=== PATIENT | female | born 1955 | race Caucasian/White ===

== ENCOUNTER 2021-11-30 12:41 | Outpatient (CLI) | payer MEDICARE, SELFPAY ==
--- NOTE | ~2021-11-30 | MR_ITS ---
EXAMINATION: MR lumbar spine wo con DATE: 11/30/2021 13:14 INDICATION: Back pain. TECHNIQUE: Magnetic resonance imaging (MRI) of the lumbar spine was performed without intravenous con trast. Sequences included sagittal T2-weighted FSE, sagittal T2-weighted FS FSE, sagittal T1-weighted FSE, and axial T2-weighted FSE. COMPARISON: Lumbar spine MRI 08/04/2020 FINDINGS: There is 6 degrees levocurvature of lumbar spine. There is 3 mm anterolisthesis of L2 on L3 . Vertebral body heights are normal. There is severely decreased disc height at L1-L2, moderately dec reased disc height at L2-L3, and severely decreased disc height from L3-L4 through L5-S1 with endplat e remodeling. The distal spinal cord signal intensity is normal. The conus medullaris is at L1. There are cysts in the kidneys measuring up to 14 mm on the right. The following disc levels are specifica lly discussed: L1-L2: The disc is bulging and has an annular fissure. There is mild bilateral facet joint osteoarthr itis. There is mild left neural foraminal stenosis. There is mild central canal stenosis. L2-L3: The disc is bulging. There is severe bilateral facet joint osteoarthritis. There is mild left neural foraminal stenosis. There is mild central canal stenosis. L3-L4: The disc is bulging and has an annular fissure. There is mild bilateral facet joint osteoarthr itis. There is mild bilateral neural foraminal stenosis. There is mild central canal stenosis. L4-L5: The disc is bulging and has an annular fissure. There is severe bilateral facet joint osteoart hritis. There is mild right and moderate left neural foraminal stenosis. There is mild central canal stenosis. L5-S1: The disc is bulging and has an annular fissure. There is severe bilateral facet joint osteoart hritis. There is mild bilateral neural foraminal stenosis. There is mild central canal stenosis. IMPRESSION: 1. Severe lumbar spondylosis with mild interval worsening at L1-L2. Reviewed, dictated and finalized at location A.
== END 2021-11-30 12:42 | disposition home or self-care (01) ==
PROVIDERS: PCP Family Medicine; Visit Provider Neurological Surgery
DX: M47.817 Spondylosis without myelopathy or radiculopathy, lumbosacral region (principal); M48.07 Spinal stenosis, lumbosacral region; M54.9 Dorsalgia, unspecified
CPT/HCPCS: 72148

== ENCOUNTER 2022-01-02 12:42 | Outpatient (CLI) | payer MEDICARE, SELFPAY ==
--- NOTE | 2022-01-02 12:57 | ECG_ITS ---
Measurements Intervals [place] Rate: 60 P: 18 [place]: 112 QRS: -22 QRSD: 98 T: 64 QT: 416 QTc: 417 Interpretive Statements SINUS RHYTHM WITH SHORT [place] INTERVAL BORDERLINE LEFT AXIS DEVIATION [QRS AXIS < -20] LOW QRS VOLTAGE IN PRECORDIAL LEADS [QRS DEFLECTION < 1.0 mV IN CHEST LEADS] PATTERN CONSISTENT WITH PULMONARY DISEASE INCOMPLETE RIGHT BUNDLE BRANCH BLOCK [90+ ms QRS DURATION, TERMINAL R IN V1/V2, 40+ ms S IN I/aVL/V4/V5/V6] ABNORMAL ECG NO PREVIOUS ECG AVAILABLE FOR COMPARISON Electronically Signed On 01-02-2022 14:13:47 CDT by Yrn Crews M.D.
== END 2022-01-02 12:43 | disposition home or self-care (01) ==
PROVIDERS: PCP Family Medicine; Visit Provider Neurological Surgery
DX: Z01.818 Encounter for other preprocedural examination (principal); R94.31 Abnormal electrocardiogram [ECG] [EKG]
CPT/HCPCS: 93005

== ENCOUNTER 2022-01-29 10:23 | Outpatient (CLI) | payer MEDICARE, SELFPAY ==
[2022-01-29 11:00] LABS: Anion Gap 12 mmol/L (8-16); Blood Urea Nitrogen 31 mg/dL (7-17); Calcium 9.5 mg/dL (8.4-10.2); Carbon Dioxide 29 mmol/L (22-30); Chloride 95 mmol/L (98-107); Estimated Glomerular Filt Rate > 60; Glucose 102 mg/dL (65-110); Potassium 3.9 mmol/L (3.4-5.0); Sodium 136 mmol/L (137-145)
== END 2022-01-29 10:24 | disposition home or self-care (01) ==
LOC: ANHSURGERY 10:28
PROVIDERS: Anesthesiology; PCP Family Medicine; Visit Provider Neurological Surgery
DX: M48.061 Spinal stenosis, lumbar region without neurogenic claudication (principal); Z79.899 Other long term (current) drug therapy; Z01.818 Encounter for other preprocedural examination
CPT/HCPCS: 36415; 80048; 86850; 86900; 86901

== ENCOUNTER 2022-02-01 00:34 | Day surgery (SDC) | payer MEDICARE, SELFPAY ==
[2022-01-19 08:19] VITALS: BMI 23.4
--- NOTE | 2022-01-19 08:29 | PC.NURSE ---
PRE-OP INSTRUCTIONS, PLEASE READ CAREFULLY Report to the Outpatient Waiting Room, entrance under the green pavilion located off [facility], at time _0900_ on date _02/01/22_. Planned Procedure Time: _1100_. PACK A SMALL OVERNIGHT BAG AND LEAVE IN THE CAR Time changes happen often and if your time is changed the preop area will call you the afternoon before. - You and your visitor will be asked to self-screen and do not enter if you have any COVID symptoms. - We encourage only one visitor and NO visitors under age 16 are allowed at this time. Your visitor will receive communication by the phone number that is given day of service. - The patient visitor is requested to social distance or may leave the building when not with patient due to restrictions. - A mask is required within the hospital. -VISITING HOURS 8AM-8PM Patients may have clear liquids (water, carbonated beverages, clear teas, apple juice) until 3 hours prior to surgery (0800 AM) with a maximum of 20 ounces. - No food from midnight until time of surgery Take the following medications with a SIP of water the morning of surgery: _PAIN MED IF NEEDED_ Medications to discontinue per ANESTHESIA - _VITAMINS/SUPPLEMENTS 3 DAYS PRIOR TO SURGERY, Date to take last dose 01/28/22_ (PT STATES ALREADY STOPPING IBUPROFEN, ANACIN END OF DEC FOR UPCOMING SURGERY) Please no make-up, nail urdu, hairspray, perfume, deodorant, or body powder the day of surgery. No jewelry (including any body piercings) or valuables the day of surgery, leave them at home. Please take a shower or bath the night before, or the morning of, surgery with an antibacterial soap. Wear comfortable, loose fitting clothing. - Jewelry must be removed prior to entering the operating room. Rings and piercings that are not removed may be cut off. - The hospital will not accept responsibility for valuables. - Please leave all valuables, including medications, at home the day of surgery. If you are going home after surgery, a licensed school boat driver must drive you home. - NO public transportation without another adult. - We recommend that an adult stay with you for 24 hours following discharge. - We also recommend that you do not drive, make important decision, drink alcoholic beverages, or take any drugs that were not prescribed by your health care provider for at least 24 hours after your discharge time. Follow any additional instructions given to you from your surgeon. If you or anyone in your household have experienced Covid symptoms in the past week, please notify your surgeon or the nurse liaison at the phone number below for possible testing. Telephone instructions given to PT and asked if any additional questions and then verbalized understanding. Patient advised to call surgeon office or pre surgery nurse liaison [phone] if any additional questions.
--- NOTE | 2022-01-31 13:32 | WPDANESEPPF ---
Anes - Initial Pre Proc Eval Procedure: Operation Date: 02/01/22 09:30 Proposed Procedures p Right L4-5 Far Lateral Foraminotomy - Abhijeet Cole MD Date/Time: 01/31/22 13:32 Surgeon: Abhijeet Cole MD Pre Op Diagnosis: right L4-5 foraminal stenosis Patient Data Age: 66 Gender: F Height: 1.57 m Weight: 57.72 kg Allergies Allergy/AdvReac Type Severity Reaction Status Date / Time naproxen [From Naprosyn] AdvReac Nausea and Verified 01/19/22 08:08 Vomiting Home Medications Medication Instructions Recorded Confirmed Type aspirin-caffeine 400 mg-32 mg 1 tablet PO ONCE 11/03/21 01/19/22 History tablet (Anacin) hydrocodone 5 mg-acetaminophen 325 1 tablet PO DAILY PRN Pain 11/03/21 01/19/22 History mg tablet ibuprofen 200 mg tablet (Advil) 200 mg PO .COMPLEX PRN Pain 11/03/21 01/19/22 History lisinopril 20 1 tablet PO DAILY 11/03/21 01/19/22 History mg-hydrochlorothiazide 25 mg tablet acetaminophen 500 mg tablet 1,000 mg PO QID PRN Pain 01/19/22 01/19/22 History ascorbic acid 125 mg-collagen, 1 cap PO BID 01/19/22 01/19/22 History hydrolyzed 740 mg capsule (Collagen Plus Vitamin C) diphenhydramine 25 1 tablet PO HS PRN PAIN/SLEEP 01/19/22 01/19/22 History mg-acetaminophen 500 mg tablet (Tylenol PM Extra Strength) melatonin 5 mg tablet 5 mg PO HS PRN Sleep 01/19/22 01/19/22 History vit C 250 mg-vit E 90 mg-zinc 40 1 tablet PO BID 01/19/22 01/19/22 History mg-copper 1 [id number] capsule (PreserVision AREDS-2) Patient hx anesthesia problems: post op nausea/vomiting Family hx anesthesia problems: none Results Review: All pre-operative results and documents have been reviewed as part of the pre-operative evaluation. [facility] Past Medical History Medical History (Updated 01/31/22 @ 13:35 by Waqas Sapp DO) Arthritis Hypercholesteremia Hypertension PONV (postoperative nausea and vomiting) Surgical History Surgical History H/O: hysterectomy History of delivery Family History Family History Other Cancer Heart disease Social History Social History Smoking status: Never smoker Second hand tobacco smoke exposure: No Alcohol intake: current Alcohol use details: STATES VERY RARE MAYBE 1 DRINK EVERY 6 MONTHS Substance use: current Substance use type: does not use Other substance usage details: CBD WITH CHT / 5MG GUMMIE @ NOT Last use: END OF DEC 2021 Living arrangements: with friend(s) Additional living arrangements comments: LIVES WITH SIGNIFICANT OTHER [facility] [phone] Spiritual care concerns: No Anes - Eval Final PreProcedure Day of Procedure 01/31/22 13:32 Patient weight: obese Heart: regular rate and rhythm Lungs: clear to auscultation Airway: Mallampati scale class II Neurological: alert and oriented Last oral intake: >/= 8 hours ASA classification: II Emergent: no Anesthetic plan: proceed Anesthesia type and monitoring: general ETT and standard monitoring Results Review: All pre-operative results and documents have been reviewed as part of the pre-operative evaluation. Informed Consent: The patient's anesthetic plan and its attendant risks and benefits were discussed with the patient/family/POA. Questions were solicited and answers provided to the satisfaction of the patient/family/POA.
[2022-02-01] VITALS (8 sets, daily range): BP systolic 105–147; BP diastolic 49–70; PULSE 55–81; RESP 10–16; TEMP 36.1–36.7; O2SAT 93–100
--- NOTE | ~2022-02-01 | XR_ITS ---
EXAMINATION: XR fluoroscopy no charge INDICATION: Foraminotomy TECHNIQUE: A single intraoperative fluoroscopic image is submitted for review. Total fluoroscopic gale e was 1.2 seconds. COMPARISON: None available FINDINGS: Fluoroscopic image demonstrates a surgical intervention at the level of the L4 vertebral aayush dy. Please refer to procedure note for full details. IMPRESSION: 1. Please refer to procedure note for full details. Reviewed, dictated and finalized at location F. [facility]
[2022-02-01] MEDS: LACTATED RINGERS 1,000 ML 30 ML IV CONT ×2 (08:22→11:13)
[2022-02-01] MEDS: SCOPOLAMINE 1.5 MG PATCH TRANSDERM (08:39)
--- NOTE | 2022-02-01 09:38 | PM.IMHP ---
H&P: HPI History of Present Illness Date/Time: 02/01/22 09:38 Chief Complaint: Back and leg pain Narrative: Faby is a 66-year-old female with a right L4 radiculopathy related to compression in the foramen by a herniated disc and spondylosis who presents for a right L4-5 far lateral foraminotomy and microdiskectomy. She has not changed appreciably since we saw her last. She has occasional dermatomal numbness. She has no specific muscle group weakness. She is not having bowel or bladder difficulty. Review of Systems Review of Systems: Patient denies shortness of breath, cough, fever, chills, nausea, vomiting, weight loss, weight gain, chest pain, dysuria. She has back and leg pain as above. The review of systems is otherwise negative on 12 systems except as noted elsewhere. [facility] Past Medical History Medical History Arthritis Hypercholesteremia Hypertension PONV (postoperative nausea and vomiting) Surgical History Surgical History H/O: hysterectomy History of delivery Family History Family History Other Cancer Heart disease Social History Social History Smoking status: Never smoker Second hand tobacco smoke exposure: No Alcohol intake: current Alcohol use details: STATES VERY RARE MAYBE 1 DRINK EVERY 6 MONTHS Substance use: current Substance use type: does not use Other substance usage details: CBD WITH CHT 1/2 5MG GUMMIE @ NOT Last use: END OF DEC 2021 Living arrangements: with friend(s) Additional living arrangements comments: LIVES WITH SIGNIFICANT OTHER [facility] [phone] Spiritual care concerns: No Meds Home Medications and Allergies Home Medications Medication Instructions Recorded Confirmed Type aspirin-caffeine 400 mg-32 mg 1 tablet PO ONCE 11/03/21 01/19/22 History tablet (Anacin) hydrocodone 5 mg-acetaminophen 325 1 tablet PO DAILY PRN Pain 11/03/21 01/19/22 History mg tablet ibuprofen 200 mg tablet (Advil) 200 mg PO .COMPLEX PRN Pain 11/03/21 01/19/22 History lisinopril 20 1 tablet PO DAILY 11/03/21 01/19/22 History mg-hydrochlorothiazide 25 mg tablet acetaminophen 500 mg tablet 1,000 mg PO QID PRN Pain 01/19/22 01/19/22 History ascorbic acid 125 mg-collagen, 1 cap PO BID 01/19/22 01/19/22 History hydrolyzed 740 mg capsule (Collagen Plus Vitamin C) diphenhydramine 25 1 tablet PO HS PRN PAIN/SLEEP 01/19/22 01/19/22 History mg-acetaminophen 500 mg tablet (Tylenol PM Extra Strength) melatonin 5 mg tablet 5 mg PO HS PRN Sleep 01/19/22 01/19/22 History vit C 250 mg-vit E 90 mg-zinc 40 1 tablet PO BID 01/19/22 01/19/22 History mg-copper 1 [id number] capsule (PreserVision AREDS-2) Allergies Allergy/AdvReac Type Severity Reaction Status Date / Time naproxen [From Naprosyn] AdvReac Nausea and Verified 01/19/22 08:08 Vomiting Exam Narrative: Strength is normal in bilateral lower extremities to direct confrontation. Sensation is intact to light touch throughout the lower extremities. Clear to auscultation Regular rate and rhythm Assessment and Plan Assessment and plan (1) Foraminal stenosis of lumbar region: Code(s): M48.061 - Spinal stenosis, lumbar region without neurogenic claudication Status: Acute Plan Faby is a 66-year-old female with back and leg pain related to stenosis in the foramen on the right at L4-5 presents for far lateral foraminotomy. I described to her again that operation, its risks, potential benefits, the alternatives, the operative and postoperative course in detail and answered all her questions personally. She indicates understanding and elects to proceed with that operation
--- NOTE | 2022-02-01 09:40 | WPDHPUPDATE1 ---
History and Physical Update Update Date/Time: 02/01/22 09:40 History and Physical has been reviewed, including an updated exam of the patient. There are NO changes in the patient's condition. Risks, benefits, and alternatives have been discussed and questions answered. Patient agrees to proceed with procedure.
[2022-02-01] MEDS: ceFAZolin 2 GM/D5W 50 ML 2 GM/50 ML BAG IVPB (09:58)
[2022-02-01] MEDS: LIDO 2%/EPINEPHRINE 1:100,000 50 ML VIAL 30 ML INFILTRATE (11:00)
--- NOTE | 2022-02-01 11:08 | P.OP_ITS ---
Procedure Note - Detailed Date of Procedure 02/01/22 Pre-op Diagnosis right L4-5 foraminal stenosis Post-op Diagnosis Same Procedure Performed Right L4-5 far lateral foraminotomy Surgeon Abhijeet Cole MD [employer] Demond Perez General Indications Faby is a 66-year-old female with back and right lower extremity pain related to foraminal stenosis at L4-5 presents for decompression. Description of Procedure The patient was brought to the operating room in the supine position, was sedated, intubated and placed under general anesthesia in routine fashion. She was then turned into the prone position on a Artis frame. The of operation her back was examined, marked for incision, prepped and draped in routine sterile fashion. Incision was marked over the L4-L5 spinous processes in the midline. This area was injected with 0.5% lidocaine with [id number] epinephrine. Intravenous antibiotics given prior to incision. Incision was made with a 10 blade scalpel down to the lumbodorsal fascia. A subperiosteal dissection of the muscle soft tissue away from spinous process and lamina on the right at L4-5 was performed with a subperiosteal elevator and Bovie cautery. A verifying x-rays obtained to verify the level of operation. At the L4-5 level Midas-Christos drill was used to resect the lateral pars and facet to the soft contents of the foramen were encountered. Under microscopy the yellow ligament was lifted and removed piecemeal using Kerrison punches. This exposed the disc and nerve below. The nerve was reflected superiorly. The ligament was entered using 11 blade scalpel. An Jessica curette, curved curette and Keene and pituitary rongeur were used to push free and removed fragments of hard and soft disc herniation from beneath the nerve. This was done until a nerve hook could be placed proximally and distally to confirm microdecompression. The wound was then copiously irrigated with bacitracin irrigation all bleeding was stopped with bipolar and Bovie cautery and Gelfoam thrombin powder. The wound was then closed in layered fashion with 2-0 Vicryl interrupted sutures in the lumbodorsal fascia and Dewey's layer. 3-0 Vicryl buried interrupted sutures were placed in the dermis and the skin was closed with a running 4-0 Monocryl subcuticular stitch and dressed with Dermabond. The patient was then allowed to wake up in the operating room and was taken to the recovery room in stable condition. There were no immediate complications of this operation. All counts were reported correct and case. Blood loss was 20 cc. The patient was neurologically at her baseline postoperatively. Estimated Blood Loss 20 IV Fluids 1,000 Complications None Condition Stable Disposition PACU [facility] Billing Surgery - Charge Forward: Surgery Billing
[2022-02-01] MEDS: fentaNYL CITRATE INJ (*CRX) 100 MCG/2 ML VIAL 25 MCG IV PUSH ×2 (11:56→12:04)
== END 2022-02-01 13:08 | disposition home or self-care (01) ==
PROVIDERS: PCP Family Medicine; Visit Provider Neurological Surgery
PROC: (CPT 63005; principal; 2022-02-01 09:30)
DX: M48.061 Spinal stenosis, lumbar region without neurogenic claudication (principal); I10 Essential (primary) hypertension; E78.00 Pure hypercholesterolemia, unspecified
CPT/HCPCS: 63056; 99199; A9270; J0330; J0690; J1100; J2250; J2270; J2405; J2704; J2710; J3010; J7120